=== PATIENT | female | born 1970 | race Caucasian/White ===

== ENCOUNTER 2018-07-20 00:49 | Emergency (ER) | payer OTHER ==
--- NOTE | 2018-07-20 01:58 | ER ---
Nurse's Notes [facility] Name: Amira Espinosa Age: 47 yrs Sex: Female : 1970 Arrival Date: 07/20/2018 Time: 00:50 Bed 7 Private MD: Jb Mace T Diagnosis: Acute upper respiratory infection, unspecified Presentation: 07/20 00:59 Presenting complaint: Patient states: she started feeling bad at work today with fever, bb aches, sinus drainage pt states she has had the flu twice today. Transition of care: patient was not received from another setting of care. Onset of symptoms was July 20, 2018. Risk Assessment: Do you want to hurt yourself or someone else? Patient reports no desire to harm self or others. Initial Sepsis Screen: Does the patient meet any 2 criteria? No. Patient's initial sepsis screen is negative. Does the patient have a suspected source of infection? No. Patient's initial sepsis screen is negative. Care prior to arrival: None. 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 - Social history:: Smoking status: Patient uses tobacco products, smokes one-half pack cigarettes per day. - Ebola Screening: : No symptoms or risks identified at this time. Screenin:05 Abuse screen: Denies threats or abuse. Denies injuries from another. Nutritional ed1 screening: No deficits noted. Tuberculosis screening: No symptoms or risk factors identified. Fall Risk No fall in past 12 months (0 pts). No secondary diagnosis (0 pts). IV access (20 points). Ambulatory Aid- None/Bed Rest/Nurse Assist (0 pts). Gait- Normal/Bed Rest/Wheelchair (0 pts) Mental Status- Oriented to own ability (0 pts). Total Sands Fall Scale indicates No Risk (0-24 pts). Assessment: 01:05 General: Appears uncomfortable, Behavior is calm, cooperative. Pain: Denies pain. ed1 Neuro: Level of Consciousness is awake, alert, obeys commands, Oriented to person, place, time, situation. Cardiovascular: Denies chest pain, Heart tones S1 S2 present. Respiratory: Reports cough that is Airway is patent Respiratory effort is even, unlabored, Respiratory pattern is regular, symmetrical, Breath sounds are clear bilaterally. GI: Abdomen is non-distended, Bowel sounds present X 4 quads. Abd is soft and non tender X 4 quads. : No signs and/or symptoms were reported regarding the genitourinary system. EENT: Throat is reddened. Derm: Skin is intact, is healthy with good turgor, Skin is dry, Skin is normal, Skin temperature is warm. Musculoskeletal: Circulation, motion, and sensation intact. Range of motion: intact in all extremities. 02:09 Reassessment: Patient appears in no apparent distress at this time. No changes from ed1 previously documented assessment. Patient and/or family updated on plan of care and expected duration. Pain level reassessed. Patient is alert, oriented x 3, equal unlabored respirations, skin warm/dry/pink. Vital Signs: 00:59 BP 156 / 90; Pulse 96; Resp 16 S; Temp 99.9; Pulse Ox 95% on R/A; Weight 97.52 kg (R); bb Height 5 ft. 2 in. (157.48 cm) (R); Pain 0/10; 02:09 BP 136 / 76; Pulse 80; Resp 20; Temp 99.5(O); Pulse Ox 96% on R/A; Pain 0/10; ed1 00:59 Body Mass Index 39.32 (97.52 kg, 157.48 cm) bb ED Course: 00:50 Patient arrived in ED. am2 00:50 Jb Mace MD is Private Physician. am2 00:51 Seun Crawley PA is PHCP. cp 00:51 Seun Salgado MD is Attending Physician. cp 00:59 Cecelia Burt, MINERVA is Primary Nurse. ed1 00:59 Arm band placed on Patient placed in an exam room, on a stretcher, on pulse oximetry. bb 01:00 Triage completed. bb 01:05 Patient has correct armband on for positive identification. Bed in low position. Call ed1 light in reach. Side rails up X2. Adult w/ patient. 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 Pulse ox on. NIBP on. 02:09 No provider procedures requiring assistance completed. Patient did not have IV access ed1 during this emergency room visit. Administered Medications: No medications were administered Outcome: 01:57 Discharge ordered by . inge 02:09 Discharged to home ambulatory. ed1 02:09 Condition: good 02:09 Discharge instructions given to patient, Instructed on discharge instructions, follow up and referral plans. medication usage, Demonstrated understanding of instructions, follow-up care, medications, Prescriptions given X 2. 02:11 Patient left the ED. ed1 Signatures: Alesia Manzo RN RN bb Cecelia Burt RN RN ed1 Seun Crawley PA PA cp Moreno, Amanda am2 Corrections: (The following items were deleted from the chart) 02:10 01:05 Maintain EMS IV. Dressing intact. Good blood return noted. Site clean \T\ dry. ed1 Gauge \T\ site: 22g right foot. ed1
--- NOTE | 2018-07-20 01:58 | EDPHYS ---
Physician Documentation [facility] Name: Amira Espinosa Age: 47 yrs Sex: Female : 1970 Arrival Date: 07/20/2018 Time: 00:50 Bed 7 Private MD: Jb Mace T ED Physician Seun Salgado HPI: 07/20 01:22 This 47 yrs old Female presents to ER via Ambulatory with complaints of Flu cp Symptoms. 01:22 The patient or guardian reports sinus congestion, body aches, low grade fever. Onset: cp The symptoms/episode began/occurred today. 01:22 Associated signs and symptoms: Pertinent negatives: chest pain, diarrhea, ear ache, cp vomiting. Severity of symptoms: in the emergency department the symptoms are unchanged. 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 - Social history:: Smoking status: Patient uses tobacco products, smokes one-half pack cigarettes per day. - Ebola Screening: : No symptoms or risks identified at this time. ROS: 01:25 Constitutional: Positive for body aches, Negative for fever, poor PO intake. cp 01:25 Eyes: Negative for injury, pain, redness, and discharge. cp 01:25 ENT: Positive for sinus congestion, sore throat, Negative for drainage from ear(s), ear pain, difficulty swallowing, difficulty handling secretions. 01:25 Neck: Negative for pain with movement, pain at rest, stiffness. 01:25 Cardiovascular: Negative for chest pain, palpitations. 01:25 Respiratory: Negative for shortness of breath, wheezing. 01:25 Abdomen/GI: Negative for abdominal pain, nausea, vomiting, and diarrhea. 01:25 : Negative for urinary symptoms. 01:25 Skin: Negative for cellulitis, rash. 01:25 Neuro: Negative for altered mental status, headache. 01:25 All other systems are negative. Exam: 01:30 Constitutional: The patient appears in no acute distress, alert, awake, non-toxic, well cp developed, well nourished. 01:30 Head/Face: Normocephalic, atraumatic. cp 01:30 Eyes: Periorbital structures: appear normal, Conjunctiva: normal, no exudate, no injection, Lids and lashes: appear normal, bilaterally. 01:30 ENT: External ear(s): are unremarkable, Ear canal(s): are normal, clear, TM's: bulging, is not appreciated, bilaterally, dullness, bilaterally, erythema, is not appreciated, bilaterally, Nose: is normal, Mouth: Lips: moist, Oral mucosa: moist, Posterior pharynx: Airway: no evidence of obstruction, patent, Tonsils: no enlargement, no exudate, swelling, is not appreciated, erythema, that is mild, exudate, is not appreciated. 01:30 Neck: ROM/movement: is normal, is supple, without pain, no range of motions limitations, no meningismus, no nuchal rigidity, Lymph nodes: no appreciated lymphadenopathy. 01:30 Chest/axilla: Inspection: normal, Palpation: is normal, no crepitus, no tenderness. 01:30 Cardiovascular: Rate: normal, Rhythm: regular. 01:30 Respiratory: the patient does not display signs of respiratory distress, Respirations: normal, no use of accessory muscles, no retractions, no splinting, no tachypnea, labored breathing, is not present, Breath sounds: are clear throughout, no decreased breath sounds, no stridor, no wheezing. 01:30 Abdomen/GI: Exam negative for discomfort, distension, guarding, Inspection: abdomen appears normal. Vital Signs: 00:59 BP 156 / 90; Pulse 96; Resp 16 S; Temp 99.9; Pulse Ox 95% on R/A; Weight 97.52 kg (R); bb Height 5 ft. 2 in. (157.48 cm) (R); Pain 0/10; 02:09 BP 136 / 76; Pulse 80; Resp 20; Temp 99.5(O); Pulse Ox 96% on R/A; Pain 0/10; ed1 00:59 Body Mass Index 39.32 (97.52 kg, 157.48 cm) bb MDM: 01:03 Patient medically screened. gill 01:25 Differential diagnosis: bronchitis, flu, strep throat, sinusitis. cp 01:56 Antibiotic administration: Not indicated, the patient has a suspected viral illness. cp 01:56 Data reviewed: vital signs, nurses notes, lab test result(s), and as a result, I will cp discharge patient. Counseling: I had a detailed discussion with the patient and/or guardian regarding: the historical points, exam findings, and any diagnostic results supporting the discharge/admit diagnosis, lab results, to return to the emergency department if symptoms worsen or persist or if there are any questions or concerns that arise at home. 07/20 00:59 Order name: Flu ed1 07/20 00:59 Order name: Strep ed1 07/20 01:33 Order name: Throat Culture [facility] Administered Medications: No medications were administered Disposition: 06:35 Co-signature as Attending Physician, Seun Salgado MD I agree with the assessment and [facility] plan of care. Disposition: 07/20/18 01:57 Discharged to Home. Impression: Acute upper respiratory infection, unspecified. - Condition is Stable. - Discharge Instructions: Upper Respiratory Infection, Adult, Form - Excuse from Work, School, or Physical Activity. - Prescriptions for Ibuprofen 800 mg Oral Tablet - take 1 tablet by ORAL route every 8 hours As needed take with food; 30 tablet. Tessalon Perles 100 mg Oral Capsule - take 1 capsule by ORAL route every 8 hours As needed; 15 capsule. - Medication Reconciliation Form, Thank You Letter, Antibiotic Education, Prescription Opioid Use form. - Follow up: Private Physician; When: 2 - 3 days; Reason: Worsening of condition. - Problem is new. - Symptoms are unchanged. Signatures: Dispatcher [employer] [facility] Seun Salgado MD MD cha Ballard, Brenda, RN RN Cecelia Burt RN RN ed1 Seun Crawley PA PA cp Corrections: (The following items were deleted from the chart) 02:11 01:57 07/20/2018 01:57 Discharged to Home. Impression: Acute upper respiratory ed1 infection, unspecified. Condition is Stable. Forms are Medication Reconciliation Form, Thank You Letter, Antibiotic Education, Prescription Opioid Use. Follow up: Private Physician; When: 2 - 3 days; Reason: Worsening of condition. Problem is new. Symptoms are unchanged. cp 22:25 01:05 Differential diagnosis: flu, acute sinusitis, strep throat cp cp
== END 2018-07-20 02:11 | disposition home or self-care (01) ==
LOC: ER 00:49
DX: J06.9 Acute upper respiratory infection, unspecified (principal); I10 Essential (primary) hypertension; F17.210 Nicotine dependence, cigarettes, uncomplicated
CPT/HCPCS: 87070; 87081; 87804; 99284